=== PATIENT | male | born 1975 | race Caucasian/White ===

== ENCOUNTER → 2016-06-08 | Outpatient (CLI) | payer BC | LOC: MRI 14:29 | DX: H55.09 Other forms of nystagmus (principal) | CPT/HCPCS: 70553; A9577 ==

== ENCOUNTER → 2020-09-21 | Outpatient (CLI) | payer BC ==
[2020-09-21 13:49] LABS: HEMOGLOBIN 15.2 gm/dl (14.0-17.5); RED BLOOD COUNT 4.81 M/UL (4.20-5.50); WHITE BLOOD COUNT 6.4 K/UL (4.5-11.0)
[2020-09-21 14:49] LABS: BUN/CREATININE RATIO 18 (0-10)
[2020-09-22 08:14] LABS: FSH 3.7 mIU/mL (1.5-12.4); LUTEINIZING HORMONE(LH) 2.6 mIU/mL (1.7-8.6); SEX HORM BINDING GLOB, SERUM 16.1 nmol/L (16.5-55.9); VITAMIN D, 25-HYDROXY 24.7 ng/mL (30.0-100.0)
[2020-09-22 15:11] LABS: THYROGLOBULIN ANTIBODY <1.0 IU/mL (0.0-0.9); THYROID PEROXIDASE (TPO) AB <9 IU/mL (0-34)
[2020-09-25 09:13] LABS: TESTOSTERONE, SERUM 118 ng/dL (264-916)
[2020-09-27 17:10] LABS: ESTROGENS, TOTAL 141 pg/mL (40-115)
== END ==
LOC: LAB 13:16
PROVIDERS: Nurse Practitioner Family
DX: Z12.9 Encounter for screening for malignant neoplasm, site unspecified (principal); R53.83 Other fatigue; E78.5 Hyperlipidemia, unspecified; E55.9 Vitamin D deficiency, unspecified
CPT/HCPCS: 36415; 80053; 80061; 82672; 83001; 83002; 84146; 84270; 84402; 84403; 84439; 84443; 84481; 85027; 86376; 86800

== ENCOUNTER 2021-06-30 19:26 | Emergency (ER) | payer OTHER ==
[2021-06-30 20:15] LABS: RED BLOOD COUNT 4.86 M/UL (4.20-5.50); WHITE BLOOD COUNT 7.8 K/UL (4.5-11.0)
[2021-06-30 20:30] LABS: BUN/CREATININE RATIO 12 (0-10)
[2021-06-30] MEDS ORDERED: PERCOCET 7.5-31 EACH PO (21:06)
[2021-06-30] MEDS ORDERED: ZOFRAN 4 MG TAB4 MG PO (21:09)
== END 2021-06-30 23:00 | disposition home or self-care (01) ==
LOC: ER1 19:26
PROVIDERS: Emergency Medicine
DX: S06.0X9A Concussion with loss of consciousness of unspecified duration, initial encounter (principal); E78.5 Hyperlipidemia, unspecified; V49.40XA Driver injured in collision with unspecified motor vehicles in traffic accident, initial encounter
CPT/HCPCS: 70450; 71260; 72125; 80053; 85025; 96374; 99284; J2405; Q9967